=== PATIENT | female | born 1980 | race African-American/Black ===

== ENCOUNTER 2018-05-03 10:58 | Emergency (ER) | payer OTHER | END 2018-05-03 12:30 | disposition left against medical advice (07) | LOC: ER 10:58 | DX: N63.10 Unspecified lump in the right breast, unspecified quadrant (principal) ==

== ENCOUNTER → 2018-05-10 | Outpatient (CLI) | payer OTHER ==
--- NOTE | 2018-05-10 15:41 | Diagnostic Imaging Report ---
Patient is self-referred. #[id number] - USBRECOMRT ULTRASOUND OF THE RIGHT BREAST : 05/10/2018 No prior exams were available for comparison. Color flow and real-time ultrasound were performed on the right breast. Scanning of the entire right breast was performed. There is heterogenous material around the implant in the superior aspect at 12 o'clock and inferiorly at 3-9 o'clock. This tissue has a "snowstorm" appearance. In addition inferiorly at the 5 o'clock position there is a high density S type shape that is may represent involution of the wall of the implant. These findings are highly suspicious for implant rupture. In addition, the breast is enlarged but void of redness or clinical findings to suggest abscess or infection. IMPRESSION: INCOMPLETE: NEEDS ADDITIONAL IMAGING EVALUATION - FOLLOW-UP RECOMMENDED Findings highly suspicious for implant rupture. Discussed with Inés, chief information security officer for Dr. Fox and an breast MRI is suggested. Adebayo Raymundo Jr., D.O. cw/:05/10/2018 11:18:37 Machine Grainer: SOL CINTRON, [facility] letter sent: Additional Imaging Needed Ultrasound BI-RADS: 0 Indeterminate
== END ==
LOC: EDBD 08:32 → US 08:32
PROVIDERS: ATTEND Specialist
DX: N63.10 Unspecified lump in the right breast, unspecified quadrant (principal); R22.9 Localized swelling, mass and lump, unspecified